=== PATIENT | female | born 1985 | race African-American/Black ===

== ENCOUNTER 2016-08-26 12:24 | Emergency (ER) | payer MEDICAID ==
[~2016-08-26] VITALS: Ht 170.2 cm; Wt 109.1 kg
[~2016-08-26 12:24] MED LIST: CLARITIN 1010 MG/TAB PO; CLEOCIN HC150 MG/CAP PO; CLEOCIN HCL300 MG PO; DAZIDOX10 MG PO; DOXYCYCLINE 10100 MG PO; FIORICET 325 MG1 TA1 PO; FIORINAL 325 MG1 CAP PO; FLEXERIL 1010 MG/TAB PO; HCTZ 25MG TAB25 MG PO; HORMONE REPLACEMENT; IPRATROPIUM BROM3 M1 IH; LEVAQUIN 750MG750 M1 PO; NEURONTIN300 MG/CAP PO; NORCO 325 MG-51 TAB PO; NORCO 325 MG-7.1 TAB PO; PERCOCET 325 MG1 TA2 PO; PHENERGAN 25 TA25 MG PO; PREDNISONE10 MG PO; PREDNISONE20 MG PO; PROAIR HFA0.09 MG/AC IH; PROMETHAZINE12.5 M5 PO; PROTEIN PO; ZOFRAN 4MG T4 MG/TAB PO; ZOFRAN ODT4 MG PO; ZOFRAN8 MG PO; [UNRECOGNIZED DRUG - OTHER]; [UNRECOGNIZED DRUG - OTHER]
[2016-08-26] MEDS ORDERED: CLEOCIN HC150 MG/CAP PO (13:39)
[2016-08-26] MEDS ORDERED: GICOCKTAIL PO (14:01)
[2016-08-26 14:14] VITALS: BP 140/85; PULSE 106; TEMP 98.3
== END 2016-08-26 14:15 | disposition home or self-care (01) ==
LOC: COL.ER 12:24
DX: K08.89 Other specified disorders of teeth and supporting structures (principal); K03.81 Cracked tooth

== ENCOUNTER 2016-09-11 15:43 | Emergency (ER) | payer MEDICAID ==
[~2016-09-11] VITALS: Ht 170.2 cm; Wt 113.6 kg
[~2016-09-11 15:43] MED LIST changes: +GICOCKTAIL PO
[2016-09-11 15:45] VITALS: BP 148/82; PULSE 109; TEMP 98.3
[2016-09-11] MEDS ORDERED: ZOFRAN ODT4 MG PO (16:13)
== END 2016-09-11 17:13 | disposition home or self-care (01) ==
LOC: COL.ER 15:43
DX: M32.9 Systemic lupus erythematosus, unspecified (principal); R52 Pain, unspecified
CPT/HCPCS: J1100; J1170; J2550

== ENCOUNTER 2016-09-30 04:53 | Emergency (ER) | payer MEDICAID ==
[~2016-09-30] VITALS: Ht 170.2 cm; Wt 114.5 kg
[2016-09-30 04:58] VITALS: BP 153/114; TEMP 98.2
[2016-09-30 06:17] VITALS: PULSE 97
== END 2016-09-30 06:17 | disposition home or self-care (01) ==
LOC: COL.ER 04:53
DX: R51 Headache (principal)
CPT/HCPCS: J1100; J2550

== ENCOUNTER 2016-10-28 06:37 | Emergency (ER) | payer MEDICAID ==
[~2016-10-28] VITALS: Ht 170.2 cm; Wt 117.7 kg
[2016-10-28 06:40] VITALS: BP 110/62; TEMP 98.8
[2016-10-28] MEDS ORDERED: ROXICODONE15 MG PO (06:45)
[2016-10-28] MEDS ORDERED: ZOFRAN ODT4 MG PO (08:03)
[2016-10-28 08:31] VITALS: PULSE 98
== END 2016-10-28 08:32 | disposition home or self-care (01) ==
LOC: COL.ER 06:37
DX: M25.562 Pain in left knee (principal); M25.572 Pain in left ankle and joints of left foot; M25.571 Pain in right ankle and joints of right foot; M25.552 Pain in left hip; F17.210 Nicotine dependence, cigarettes, uncomplicated; G89.29 Other chronic pain; M32.9 Systemic lupus erythematosus, unspecified
CPT/HCPCS: J1100; J2550

== ENCOUNTER 2016-11-29 19:02 | Emergency (ER) | payer MEDICAID ==
[~2016-11-29] VITALS: Ht 170.2 cm; Wt 109.1 kg
[~2016-11-29 19:02] MED LIST changes: +ROXICODONE15 MG PO
[2016-11-29 19:05] VITALS: BP 110/57; TEMP 97.6
[2016-11-29 20:23] LABS: BASO % 0.4 % (0.0-2.0); EOS # 0.5 (0.0-0.7); EOS % 4.5 % (0-4.0); GRAN # 5.2 (1.4-6.5); HEMATOCRIT 35.9 % (37.0-47.0); HEMOGLOBIN 11.3 g/dl (12.5-16.0); LYMPH # 3.5 (1.2-3.4); LYMPH % 34.4 % (20.0-51.0); MEAN CELL VOLUME 85 fl (80.0-100.0); MEAN CORPUSCULAR HEMOGLOBIN 27 pg (27.0-31.0); MEAN CORPUSCULAR HGB CONC 32 g/dl (33.0-37.0); MEAN PLATELET VOLUME 9.6 fl (7.4-10.4); MONO # 0.8 (0.1-0.6); MONO % 7.9 % (1.7-9.3); PLATELET COUNT 386 K/mm3 (130-400); RED BLOOD COUNT 4.22 M/mm3 (4.10-5.30); REDCELL DISTRIBUTION WIDTH-CV 14.4 % (11.5-14.5)
[2016-11-29 20:31] LABS: ADJUSTED CALCIUM 9.4 mg/dL (8.4-10.2); ALBUMIN 3.7 gm/dL (3.5-5.0); BILIRUBIN,TOTAL 0.5 mg/dL (0.0-1.0); CALCIUM 9.2 mg/dL (8.4-10.2); CREATININE, serum 0.72 mg/dL (0.52-1.25); POTASSIUM 4.2 mmol/L (3.4-5.0); TOTAL PROTEIN 6.8 gm/dL (6.4-8.2)
[2016-11-29 20:53] LABS: C-REACTIVE PROTEIN 2.6 mg/dL (0.0-0.9)
[2016-11-29 21:19] VITALS: PULSE 87
== END 2016-11-29 21:19 | disposition home or self-care (01) ==
LOC: COL.ER 19:02
PROVIDERS: Emergency Medicine
DX: M32.9 Systemic lupus erythematosus, unspecified (principal); M25.562 Pain in left knee; M25.561 Pain in right knee; M25.552 Pain in left hip; M25.551 Pain in right hip
CPT/HCPCS: J2405; J2930; J3010; J7030; J7060

== ENCOUNTER 2016-12-10 23:30 | Emergency (ER) | payer MEDICAID ==
[~2016-12-10] VITALS: Ht 170.2 cm; Wt 104.5 kg
[2016-12-10 23:32] VITALS: TEMP 97.4
[2016-12-10] MEDS ORDERED: ZYRTEC 10MG10 MG PO (23:38)
[2016-12-10] MEDS ORDERED: MOBIC15 MG PO (23:38)
[2016-12-10] MEDS ORDERED: SYNTHROID0.05 MG/TA PO (23:38)
[2016-12-10] MEDS ORDERED: AMITRIPTYLINE H50 M1 PO (23:38)
[2016-12-10] MEDS ORDERED: LOPRESSOR 225 MG/TAB PO (23:39)
[2016-12-10] MEDS ORDERED: ZOFRAN8 MG PO (23:56)
[2016-12-10] MEDS ORDERED: PERCOCET 325 MG1 TA2 PO (23:56)
[2016-12-11] MEDS ORDERED: PREDNISONE20 MG PO
[2016-12-11 00:28] VITALS: BP 116/67; PULSE 84
== END 2016-12-11 00:29 | disposition home or self-care (01) ==
LOC: COL.ER 23:30
DX: M54.9 Dorsalgia, unspecified (principal); M25.552 Pain in left hip; M25.551 Pain in right hip; M25.562 Pain in left knee; R11.10 Vomiting, unspecified; M32.9 Systemic lupus erythematosus, unspecified; G89.29 Other chronic pain; I10 Essential (primary) hypertension
CPT/HCPCS: J1170; J2930

== ENCOUNTER 2016-12-18 08:44 | Emergency (ER) | payer MEDICAID ==
[~2016-12-18] VITALS: Ht 170.2 cm; Wt 114.3 kg
[~2016-12-18 08:44] MED LIST changes: +AMITRIPTYLINE H50 M1 PO; +LOPRESSOR 225 MG/TAB PO; +MOBIC15 MG PO; +SYNTHROID0.05 MG/TA PO; +ZYRTEC 10MG10 MG PO
[2016-12-18 08:47] VITALS: BP 139/77; PULSE 93; TEMP 99.7
[2016-12-18] MEDS ORDERED: FENTANYL 12MCG TD (09:13)
== END 2016-12-18 09:44 | disposition home or self-care (01) ==
LOC: COL.ER 08:44
DX: M54.2 Cervicalgia (principal); M25.512 Pain in left shoulder; M25.552 Pain in left hip; M25.551 Pain in right hip; M25.562 Pain in left knee; M25.561 Pain in right knee; I10 Essential (primary) hypertension; G89.29 Other chronic pain; M32.9 Systemic lupus erythematosus, unspecified; F17.210 Nicotine dependence, cigarettes, uncomplicated
CPT/HCPCS: J1170

== ENCOUNTER 2016-12-29 11:04 | Emergency (ER) | payer MEDICAID ==
[~2016-12-29] VITALS: Ht 170.2 cm; Wt 118.6 kg
[~2016-12-29 11:04] MED LIST changes: +FENTANYL 12MCG TD
[2016-12-29 11:13] VITALS: BP 129/88; PULSE 107; TEMP 98.3
[2016-12-29] MEDS ORDERED: CLEOCIN HC150 MG/CAP PO (11:56)
== END 2016-12-29 12:28 | disposition home or self-care (01) ==
LOC: COL.ER 11:04
DX: K08.539 Fractured dental restorative material, unspecified (principal); K02.9 Dental caries, unspecified; I10 Essential (primary) hypertension; G43.909 Migraine, unspecified, not intractable, without status migrainosus; F17.210 Nicotine dependence, cigarettes, uncomplicated

== ENCOUNTER 2017-01-09 23:50 | Emergency (ER) | payer MEDICAID ==
[~2017-01-09] VITALS: Ht 170.2 cm; Wt 117.3 kg
[2017-01-09 23:53] VITALS: TEMP 98.3
[2017-01-10] MEDS ORDERED: PERCOCET 325 MG1 TA2 (00:05)
[2017-01-10] MEDS ORDERED: NORCO 325 MG-51 TAB PO (00:05)
[2017-01-10] MEDS ORDERED: NEURONTIN300 MG/CAP PO (00:08)
[2017-01-10] MEDS ORDERED: MEDROL 4MG DOSPA4 MG PO (00:35)
[2017-01-10 00:46] VITALS: BP 120/84; PULSE 89
== END 2017-01-10 00:48 | disposition home or self-care (01) ==
LOC: COL.ER 23:50
DX: M25.561 Pain in right knee (principal); M32.9 Systemic lupus erythematosus, unspecified; G89.29 Other chronic pain; R11.0 Nausea
CPT/HCPCS: J1170; J2405; J7512

== ENCOUNTER 2017-01-21 10:16 | Emergency (ER) | payer MEDICAID ==
[~2017-01-21] VITALS: Ht 172.7 cm; Wt 70.5 kg
[~2017-01-21 10:16] MED LIST changes: +MEDROL 4MG DOSPA4 MG PO; +PERCOCET 325 MG1 TA2
[2017-01-21 10:18] VITALS: TEMP 99.3
[2017-01-21] MEDS ORDERED: CLINDAMYCIN150 MG PO (11:01)
[2017-01-21 11:17] VITALS: BP 135/80; PULSE 110
== END 2017-01-21 11:17 | disposition home or self-care (01) ==
LOC: COL.ER 10:16
DX: K08.89 Other specified disorders of teeth and supporting structures (principal); F17.210 Nicotine dependence, cigarettes, uncomplicated; K03.81 Cracked tooth

== ENCOUNTER 2017-01-30 06:03 | Emergency (ER) | payer MEDICAID ==
[~2017-01-30] VITALS: Ht 170.2 cm; Wt 119.5 kg
[~2017-01-30 06:03] MED LIST changes: +CLINDAMYCIN150 MG PO
[2017-01-30 06:06] VITALS: TEMP 99
[2017-01-30 08:56] VITALS: BP 139/91; PULSE 114
== END 2017-01-30 08:57 | disposition home or self-care (01) ==
LOC: COL.ER 06:03
DX: S93.401A Sprain of unspecified ligament of right ankle, initial encounter (principal); G89.29 Other chronic pain; M25.552 Pain in left hip; M25.551 Pain in right hip; M25.562 Pain in left knee; M25.561 Pain in right knee; M32.9 Systemic lupus erythematosus, unspecified; Z79.891 Long term (current) use of opiate analgesic; W19.XXXA Unspecified fall, initial encounter; Z91.81 History of falling; Y92.009 Unspecified place in unspecified non-institutional (private) residence as the place of occurrence of the external cause; I10 Essential (primary) hypertension; F17.210 Nicotine dependence, cigarettes, uncomplicated
CPT/HCPCS: J1100

== ENCOUNTER 2017-03-05 11:06 | Emergency (ER) | payer MEDICAID ==
[~2017-03-05] VITALS: Ht 170.2 cm; Wt 125.5 kg
[2017-03-05 11:14] VITALS: BP 136/64; PULSE 100; TEMP 98.4
[2017-03-05 12:29] LABS: BASO % 0.5 % (0.0-2.0); EOS # 0.3 (0.0-0.7); EOS % 4.3 % (0-4.0); GRAN # 4.2 (1.4-6.5); GRAN % 54.4 % (42.2-75.2); LYMPH # 2.6 (1.2-3.4); LYMPH % 33.5 % (20.0-51.0); MEAN CELL VOLUME 85 fl (80.0-100.0); MEAN CORPUSCULAR HGB CONC 32 g/dl (33.0-37.0); MEAN PLATELET VOLUME 9.5 fl (7.4-10.4); MONO # 0.5 (0.1-0.6); MONO % 6.8 % (1.7-9.3); PLATELET COUNT 394 K/mm3 (130-400); RED BLOOD COUNT 4.13 M/mm3 (4.10-5.30); REDCELL DISTRIBUTION WIDTH-CV 14.5 % (11.5-14.5); WHITE BLOOD COUNT 7.8 K/mm3 (4.8-10.8)
[2017-03-05 12:33] LABS: HEMOGLOBIN 11.3 g/dl (12.5-16.0); MEAN CORPUSCULAR HEMOGLOBIN 27 pg (27.0-31.0)
[2017-03-05 12:40] LABS: ADJUSTED CALCIUM 9.5 mg/dL (8.4-10.2); ALBUMIN 3.8 gm/dL (3.5-5.0); BILIRUBIN,TOTAL 0.3 mg/dL (0.0-1.0); CALCIUM 9.3 mg/dL (8.4-10.2); CREATININE, serum 0.55 mg/dL (0.52-1.25); POTASSIUM 3.9 mmol/L (3.4-5.0); TOTAL PROTEIN 6.9 gm/dL (6.4-8.2)
== END 2017-03-05 13:21 | disposition home or self-care (01) ==
LOC: COL.ER 11:06
PROVIDERS: Nurse Practitioner
DX: M79.652 Pain in left thigh (principal); M79.651 Pain in right thigh; M79.662 Pain in left lower leg; M79.661 Pain in right lower leg; G43.909 Migraine, unspecified, not intractable, without status migrainosus

== ENCOUNTER 2017-03-15 21:12 | Emergency (ER) | payer MEDICAID ==
[~2017-03-15] VITALS: Ht 170.2 cm; Wt 120.4 kg
[2017-03-15 21:18] VITALS: BP 137/72; TEMP 98.5
[2017-03-15] MEDS ORDERED: PREDNISONE20 MG PO (23:29)
[2017-03-15] MEDS ORDERED: NORCO 325 MG-51 TAB PO (23:29)
[2017-03-15] MEDS ORDERED: DOXYCYCLINE 10100 MG PO (23:29)
[2017-03-16 00:08] VITALS: PULSE 117
== END 2017-03-16 00:08 | disposition home or self-care (01) ==
LOC: COL.ER 21:12
DX: R07.9 Chest pain, unspecified (principal); J40 Bronchitis, not specified as acute or chronic; I10 Essential (primary) hypertension; F17.200 Nicotine dependence, unspecified, uncomplicated; F99 Mental disorder, not otherwise specified
CPT/HCPCS: J7512

== ENCOUNTER 2017-03-31 21:15 | Emergency (ER) | payer MEDICAID ==
[~2017-03-31] VITALS: Ht 170.2 cm; Wt 122.7 kg
[2017-03-31 21:18] VITALS: BP 135/70; TEMP 97.9
[2017-03-31 22:38] VITALS: PULSE 112
== END 2017-03-31 22:38 | disposition home or self-care (01) ==
LOC: COL.ER 21:15
DX: M79.1 Myalgia (principal); Z87.39 Personal history of other diseases of the musculoskeletal system and connective tissue
CPT/HCPCS: J1170; J2550; J8540

== ENCOUNTER 2017-06-01 16:58 | Emergency (ER) | payer MEDICAID ==
[~2017-06-01] VITALS: Ht 170.2 cm; Wt 127.3 kg
[~2017-06-01 16:58] MED LIST changes: +PERCOCET 325 MG1 TAB PO
[2017-06-01 17:01] VITALS: BP 105/71; TEMP 97.9
[2017-06-01] MEDS ORDERED: MEDROL 4MG DOSPA4 MG PO (19:26)
[2017-06-01 19:42] VITALS: PULSE 91
== END 2017-06-01 19:44 | disposition home or self-care (01) ==
LOC: COL.ER 16:58
DX: M25.461 Effusion, right knee (principal); I10 Essential (primary) hypertension; G43.909 Migraine, unspecified, not intractable, without status migrainosus; G89.29 Other chronic pain; M54.9 Dorsalgia, unspecified; F17.210 Nicotine dependence, cigarettes, uncomplicated; Z87.39 Personal history of other diseases of the musculoskeletal system and connective tissue
CPT/HCPCS: J2405

== ENCOUNTER 2017-06-28 09:45 | Emergency (ER) | payer MEDICAID ==
[~2017-06-28] VITALS: Ht 170.2 cm; Wt 111.4 kg
[~2017-06-28 09:45] MED LIST changes: +MICROZIDE12.5 MG PO
[2017-06-28 09:54] VITALS: BP 127/74; TEMP 97.8
[2017-06-28 12:36] VITALS: PULSE 97
== END 2017-06-28 12:00 | disposition home or self-care (01) ==
LOC: COL.ER 09:45
DX: G89.29 Other chronic pain (principal); M25.562 Pain in left knee; M25.561 Pain in right knee; G43.909 Migraine, unspecified, not intractable, without status migrainosus; I10 Essential (primary) hypertension; M32.9 Systemic lupus erythematosus, unspecified; F17.210 Nicotine dependence, cigarettes, uncomplicated; Z98.890 Other specified postprocedural states; Z90.722 Acquired absence of ovaries, bilateral
CPT/HCPCS: J1170; J2550

== ENCOUNTER 2017-07-04 14:58 | Emergency (ER) | payer MEDICAID ==
[~2017-07-04] VITALS: Ht 170.2 cm; Wt 130.9 kg
[2017-07-04 15:05] VITALS: BP 140/65; PULSE 93; TEMP 98.1
[2017-07-04] MEDS ORDERED: NORCO 325 MG-51 TAB PO (15:51)
[2017-07-04] MEDS ORDERED: PERCOCET 325 MG1 TAB PO (15:51)
[2017-07-04] MEDS ORDERED: PREDNISONE10 MG PO (16:38)
== END 2017-07-04 16:48 | disposition home or self-care (01) ==
LOC: COL.ER 14:58
DX: G89.29 Other chronic pain (principal); M79.662 Pain in left lower leg; M79.661 Pain in right lower leg; M32.9 Systemic lupus erythematosus, unspecified; E66.9 Obesity, unspecified; Z98.890 Other specified postprocedural states; Z86.718 Personal history of other venous thrombosis and embolism; W10.9XXA Fall (on) (from) unspecified stairs and steps, initial encounter; Y93.01 Activity, walking, marching and hiking

== ENCOUNTER 2017-07-28 04:52 | Emergency (ER) | payer MEDICAID ==
[~2017-07-28] VITALS: Ht 172.7 cm; Wt 113.2 kg
[~2017-07-28 04:52] MED LIST changes: -LOPRESSOR 225 MG/TAB PO; +LOPRESSOR 550 MG/TAB PO; -MICROZIDE12.5 MG PO
[2017-07-28 04:57] VITALS: TEMP 98.2
[2017-07-28] MEDS ORDERED: MEDROL 4MG DOSPA4 MG PO (05:30)
[2017-07-28 06:13] VITALS: BP 122/86; PULSE 80
== END 2017-07-28 06:14 | disposition home or self-care (01) ==
LOC: COL.ER 04:52
DX: G43.909 Migraine, unspecified, not intractable, without status migrainosus (principal)
CPT/HCPCS: J1170; J1200; J2550; J7512

== ENCOUNTER 2017-09-07 22:48 | Emergency (ER) | payer MEDICAID ==
[~2017-09-07] VITALS: Ht 170.2 cm; Wt 117.3 kg
[2017-09-07 22:50] VITALS: TEMP 98.6
[2017-09-08 00:14] LABS: COLLECTION METHOD CLEAN CATCH
[2017-09-08 00:17] LABS: BASO % 0.3 % (0.0-2.0); EOS # 0.5 (0.0-0.7); EOS % 3.4 % (0-4.0); GRAN % 58.7 % (42.2-75.2); HEMATOCRIT 33.1 % (37.0-47.0); HEMOGLOBIN 10.3 g/dl (12.5-16.0); LYMPH # 3.9 (1.2-3.4); LYMPH % 28.6 % (20.0-51.0); MEAN CELL VOLUME 84 fl (80.0-100.0); MEAN CORPUSCULAR HEMOGLOBIN 26 pg (27.0-31.0); MEAN CORPUSCULAR HGB CONC 31 g/dl (33.0-37.0); MEAN PLATELET VOLUME 10.1 fl (7.4-10.4); MONO # 1.1 (0.1-0.6); MONO % 7.9 % (1.7-9.3); PLATELET COUNT 260 K/mm3 (130-400); RED BLOOD COUNT 3.92 M/mm3 (4.10-5.30); REDCELL DISTRIBUTION WIDTH-CV 15.4 % (11.5-14.5)
[2017-09-08 00:20] LABS: MUCOUS Present /lpf; PH 6 (5-8); SQUAMOUS EPITHELIAL 0-2 /hpf; URINE APPEARANCE Clear; URINE BACTERIA Rare /hpf; URINE BILIRUBIN Negative (NEGATIVE); URINE BLOOD Negative (NEGATIVE); URINE COLOR Yellow; URINE GLUCOSE Negative (NEGATIVE); URINE KETONE Negative (NEGATIVE); URINE LEUKOCYTE ESTERASE Negative (NEGATIVE); URINE NITRATE Negative (NEGATIVE); URINE PROTEIN(semi-quant) Negative (NEGATIVE); URINE RBC 0-2 /hpf; URINE UROBILINOGEN Negative (NEGATIVE)
[2017-09-08 00:28] LABS: ALBUMIN 3.6 gm/dL (3.5-5.0); BILIRUBIN,TOTAL 0.2 mg/dL (0.0-1.0); C-REACTIVE PROTEIN 1.5 mg/dL (0.0-0.9); CALCIUM 8.7 mg/dL (8.4-10.2); CREATININE, serum 0.57 mg/dL (0.52-1.25); TOTAL PROTEIN 6.6 gm/dL (6.4-8.2)
[2017-09-08] MEDS ORDERED: PERCOCET 325 MG1 TAB PO (00:51)
[2017-09-08] MEDS ORDERED: MEDROL 4MG DOSPA4 MG PO (00:54)
[2017-09-08 01:12] VITALS: BP 149/87; PULSE 98
== END 2017-09-08 01:12 | disposition home or self-care (01) ==
LOC: COL.ER 22:48
PROVIDERS: Emergency Medicine
DX: M32.9 Systemic lupus erythematosus, unspecified (principal); I10 Essential (primary) hypertension; F17.210 Nicotine dependence, cigarettes, uncomplicated; Z79.52 Long term (current) use of systemic steroids
CPT/HCPCS: J1170; J2405; J7030; J7512

== ENCOUNTER 2017-10-26 20:50 | Emergency (ER) | payer MEDICAID ==
[~2017-10-26] VITALS: Ht 170.2 cm; Wt 111.4 kg
[2017-10-26 20:54] VITALS: TEMP 98.1
[2017-10-26] MEDS ORDERED: FENTANYL 50MCG TD (21:34)
[2017-10-26 21:35] LABS: BASO % 0.2 % (0.0-2.0); EOS % 0.1 % (0-4.0); GRAN % 73.2 % (42.2-75.2); LYMPH # 2.7 (1.2-3.4); LYMPH % 21.5 % (20.0-51.0); MEAN CELL VOLUME 85 fl (80.0-100.0); MEAN CORPUSCULAR HGB CONC 32 g/dl (33.0-37.0); MEAN PLATELET VOLUME 9.4 fl (7.4-10.4); MONO # 0.5 (0.1-0.6); PLATELET COUNT 499 K/mm3 (130-400); RED BLOOD COUNT 4.21 M/mm3 (4.10-5.30); REDCELL DISTRIBUTION WIDTH-CV 14.9 % (11.5-14.5)
[2017-10-26 21:39] LABS: HEMATOCRIT 35.6 % (37.0-47.0); HEMOGLOBIN 11.5 g/dl (12.5-16.0); MEAN CORPUSCULAR HEMOGLOBIN 27 pg (27.0-31.0)
[2017-10-26 21:47] LABS: ALANINE AMINOTRANSFERASE 22 U/L (9-52); ALKALINE PHOSPHATASE 91 U/L (50-136); ANION GAP 13 mmol/L (7-16); AST,SGOT 15 U/L (15-37); BILIRUBIN,TOTAL < 0.1 mg/dL (0.0-1.0); BLOOD UREA NITROGEN 17 mg/dL (7-17); C-REACTIVE PROTEIN < 0.5 mg/dL (0.0-0.9); CALCIUM 8.8 mg/dL (8.4-10.2); CARBON DIOXIDE 24 mmol/L (22-30); CHLORIDE 102 mmol/L (98-107); CREATININE, serum 0.61 mg/dL (0.52-1.25); GLUCOSE 177 mg/dL (74-106); POTASSIUM 4.1 mmol/L (3.4-5.0); SODIUM 139 mmol/L (137-145); TOTAL PROTEIN 7.3 gm/dL (6.4-8.2)
[2017-10-26 21:55] LABS: ERYTHROCYTE SEDIMENTATION RATE 13 mm/hr (0-20)
[2017-10-26 21:56] LABS: TROPONIN-I < 0.012 ng/mL (0.000-0.034)
[2017-10-26] MEDS ORDERED: DOXYCYCLINE 10100 MG PO (22:34)
[2017-10-26 22:55] VITALS: BP 121/63; PULSE 87
== END 2017-10-26 22:45 | disposition home or self-care (01) ==
LOC: COL.ER 20:50
PROVIDERS: Emergency Medicine
DX: R07.89 Other chest pain (principal); Z87.39 Personal history of other diseases of the musculoskeletal system and connective tissue
CPT/HCPCS: J8540

== ENCOUNTER 2018-01-15 02:44 | Emergency (ER) | payer MEDICAID ==
[~2018-01-15] VITALS: Ht 170.2 cm; Wt 113.6 kg
[~2018-01-15 02:44] MED LIST changes: +FENTANYL 50MCG TD
[2018-01-15 02:49] VITALS: BP 112/93; TEMP 97
[2018-01-15 03:13] LABS: BASO % 0.4 % (0.0-2.0); EOS # 0.3 (0.0-0.7); GRAN # 4.1 (1.4-6.5); GRAN % 44.8 % (42.2-75.2); LYMPH # 4.1 (1.2-3.4); LYMPH % 45.1 % (20.0-51.0); MEAN CELL VOLUME 83 fl (80.0-100.0); MEAN CORPUSCULAR HEMOGLOBIN 27 pg (27.0-31.0); MEAN CORPUSCULAR HGB CONC 33 g/dl (33.0-37.0); MONO # 0.6 (0.1-0.6); MONO % 6.4 % (1.7-9.3); PLATELET COUNT 451 K/mm3 (130-400); RED BLOOD COUNT 4.41 M/mm3 (4.10-5.30); REDCELL DISTRIBUTION WIDTH-CV 13.7 % (11.5-14.5)
[2018-01-15 03:20] LABS: COLLECTION METHOD CLEAN CATCH
[2018-01-15 03:20] LABS: HEMATOCRIT 36.7 % (37.0-47.0)
[2018-01-15] MEDS ORDERED: MEDROL 4MG DOSPA4 MG PO (03:20)
[2018-01-15 03:25] LABS: ALANINE AMINOTRANSFERASE 25 U/L (9-52); ALBUMIN 3.7 gm/dL (3.5-5.0); ALKALINE PHOSPHATASE 108 U/L (50-136); ANION GAP 13 mmol/L (7-16); AST,SGOT 18 U/L (15-37); BILIRUBIN,TOTAL 0.4 mg/dL (0.0-1.0); BLOOD UREA NITROGEN 15 mg/dL (7-17); C-REACTIVE PROTEIN < 0.5 mg/dL (0.0-0.9); CALCIUM 9.2 mg/dL (8.4-10.2); CARBON DIOXIDE 23 mmol/L (22-30); CHLORIDE 106 mmol/L (98-107); CREATININE, serum 0.86 mg/dL (0.52-1.25); GLUCOSE 101 mg/dL (74-106); POTASSIUM 4.1 mmol/L (3.4-5.0); SODIUM 142 mmol/L (137-145); TOTAL PROTEIN 7.2 gm/dL (6.4-8.2)
[2018-01-15 03:30] LABS: MUCOUS Present /lpf; PH 5 (5-8); SQUAMOUS EPITHELIAL 0-2 /hpf; URINE APPEARANCE Clear; URINE BACTERIA Rare /hpf; URINE BILIRUBIN Positive (NEGATIVE); URINE BLOOD Negative (NEGATIVE); URINE COLOR Yellow; URINE GLUCOSE Negative (NEGATIVE); URINE KETONE Negative (NEGATIVE); URINE LEUKOCYTE ESTERASE Negative (NEGATIVE); URINE NITRATE Negative (NEGATIVE); URINE PROTEIN(semi-quant) 1+ (NEGATIVE); URINE RBC 0-2 /hpf; URINE UROBILINOGEN Negative (NEGATIVE)
[2018-01-15 03:33] LABS: ERYTHROCYTE SEDIMENTATION RATE 14 mm/hr (0-20)
[2018-01-15 04:02] VITALS: PULSE 89
== END 2018-01-15 04:02 | disposition home or self-care (01) ==
LOC: COL.ER 02:44
PROVIDERS: Family Medicine
DX: M32.9 Systemic lupus erythematosus, unspecified (principal); G89.29 Other chronic pain
CPT/HCPCS: J1100; J2405; J3010; J7030

== ENCOUNTER 2018-03-23 09:08 | Emergency (ER) | payer MEDICAID ==
[~2018-03-23] VITALS: Ht 170.2 cm; Wt 110.0 kg
[2018-03-23 09:15] VITALS: BP 128/99; TEMP 98
[2018-03-23 09:55] LABS: BASO % 0.3 % (0.0-2.0); EOS # 0.4 (0.0-0.7); EOS % 3.6 % (0-4.0); GRAN % 48.4 % (42.2-75.2); HEMOGLOBIN 10.8 g/dl (12.5-16.0); LYMPH # 4.1 (1.2-3.4); LYMPH % 40.4 % (20.0-51.0); MEAN CELL VOLUME 85 fl (80.0-100.0); MEAN CORPUSCULAR HEMOGLOBIN 27 pg (27.0-31.0); MEAN CORPUSCULAR HGB CONC 32 g/dl (33.0-37.0); MEAN PLATELET VOLUME 10.1 fl (7.4-10.4); MONO # 0.7 (0.1-0.6); MONO % 6.8 % (1.7-9.3); PLATELET COUNT 342 K/mm3 (130-400); RED BLOOD COUNT 3.97 M/mm3 (4.10-5.30); REDCELL DISTRIBUTION WIDTH-CV 14.7 % (11.5-14.5)
[2018-03-23 09:56] LABS: HEMATOCRIT 33.9 % (37.0-47.0)
[2018-03-23] MEDS ORDERED: ROXICODONE15 MG PO (10:02)
[2018-03-23] MEDS ORDERED: SUDAFED 12 HOU120 MG PO (10:03)
[2018-03-23 10:22] LABS: ERYTHROCYTE SEDIMENTATION RATE 20 mm/hr (0-20)
[2018-03-23 10:56] VITALS: PULSE 83
== END 2018-03-23 11:00 | disposition home or self-care (01) ==
LOC: COL.ER 09:08
PROVIDERS: Physician Assistant
DX: M25.561 Pain in right knee (principal); I10 Essential (primary) hypertension; F17.210 Nicotine dependence, cigarettes, uncomplicated; Z98.890 Other specified postprocedural states
CPT/HCPCS: L1846

== ENCOUNTER 2018-05-21 20:30 | Emergency (ER) | payer MEDICAID ==
[~2018-05-21] VITALS: Ht 170.2 cm; Wt 109.1 kg
[~2018-05-21 20:30] MED LIST changes: +SUDAFED 12 HOU120 MG PO
[2018-05-21 20:42] VITALS: BP 126/72; TEMP 97.5
[2018-05-21 22:42] VITALS: PULSE 86
== END 2018-05-21 22:42 | disposition home or self-care (01) ==
LOC: COL.ER 20:30
DX: G89.29 Other chronic pain (principal); M54.5 Low back pain; I10 Essential (primary) hypertension; Z87.39 Personal history of other diseases of the musculoskeletal system and connective tissue
CPT/HCPCS: J1100; J1170; J2550

== ENCOUNTER 2018-08-11 19:51 | Emergency (ER) | payer MEDICAID ==
[~2018-08-11] VITALS: Ht 170.2 cm; Wt 111.4 kg
[2018-08-11 19:54] VITALS: TEMP 98.6
[2018-08-11 20:57] VITALS: BP 121/72; PULSE 72
== END 2018-08-11 20:58 | disposition home or self-care (01) ==
LOC: COL.ER 19:51
DX: M32.9 Systemic lupus erythematosus, unspecified (principal); I10 Essential (primary) hypertension; G89.29 Other chronic pain
CPT/HCPCS: J1100; J1170

== ENCOUNTER 2018-09-16 18:27 | Emergency (ER) | payer MEDICAID ==
[~2018-09-16] VITALS: Ht 170.2 cm; Wt 106.8 kg
[2018-09-16 18:34] VITALS: TEMP 97.9
[2018-09-16] MEDS ORDERED: LOVENOX 6060 MG/0.6 SQ (19:03)
[2018-09-16 20:35] VITALS: BP 101/70; PULSE 71
== END 2018-09-16 20:37 | disposition home or self-care (01) ==
LOC: COL.ER 18:27
DX: L93.0 Discoid lupus erythematosus (principal); M25.561 Pain in right knee; M25.552 Pain in left hip; I10 Essential (primary) hypertension; G43.909 Migraine, unspecified, not intractable, without status migrainosus; E03.9 Hypothyroidism, unspecified; F17.210 Nicotine dependence, cigarettes, uncomplicated; Z79.899 Other long term (current) drug therapy
CPT/HCPCS: J1100

== ENCOUNTER 2018-09-28 00:56 | Emergency (ER) | payer MEDICAID ==
[~2018-09-28 00:56] MED LIST changes: +LOVENOX 6060 MG/0.6 SQ
[2018-09-28 01:00] VITALS: BP 160/112; TEMP 98.7
[2018-09-28] MEDS ORDERED: DESYREL 50MG50 MG PO (01:29)
[2018-09-28 02:56] VITALS: PULSE 90
== END 2018-09-28 02:56 | disposition home or self-care (01) ==
LOC: COL.ER 00:56
DX: M25.562 Pain in left knee (principal); M25.561 Pain in right knee; Z87.39 Personal history of other diseases of the musculoskeletal system and connective tissue
CPT/HCPCS: J1100; J2405

== ENCOUNTER 2018-10-18 22:20 | Emergency (ER) | payer MEDICAID ==
[~2018-10-18] VITALS: Ht 170.2 cm; Wt 111.4 kg
[~2018-10-18 22:20] MED LIST changes: +DESYREL 50MG50 MG PO
[2018-10-18 22:26] VITALS: BP 129/73; TEMP 97.7
[2018-10-18] MEDS ORDERED: ROXICODONE15 MG PO ×2 (23:00)
[2018-10-18] MEDS ORDERED: HYDRODIURIL50 MG PO (23:01)
[2018-10-19 00:01] VITALS: PULSE 116
== END 2018-10-19 00:01 | disposition home or self-care (01) ==
LOC: COL.ER 22:20
DX: G89.29 Other chronic pain (principal); M25.511 Pain in right shoulder; M25.561 Pain in right knee; M25.551 Pain in right hip; Z87.39 Personal history of other diseases of the musculoskeletal system and connective tissue; Z86.718 Personal history of other venous thrombosis and embolism; Z90.710 Acquired absence of both cervix and uterus
CPT/HCPCS: J1100; J1170; J2405

== ENCOUNTER 2019-02-09 07:10 | Emergency (ER) | payer MEDICAID ==
[~2019-02-09] VITALS: Ht 170.2 cm; Wt 100.0 kg
[~2019-02-09 07:10] MED LIST changes: +HYDRODIURIL50 MG PO; +PROTONIX 40MG T40 MG PO
[2019-02-09 08:00] VITALS: BP 128/72; PULSE 98; TEMP 97
== END 2019-02-09 08:00 | disposition home or self-care (01) ==
LOC: COL.ER 07:10
DX: Z79.52 Long term (current) use of systemic steroids (principal); M25.561 Pain in right knee
CPT/HCPCS: J1040

== ENCOUNTER 2019-05-31 16:03 | Emergency (ER) | payer MEDICAID ==
[~2019-05-31] VITALS: Ht 170.2 cm; Wt 106.8 kg
[2019-05-31 16:25] VITALS: BP 133/73; PULSE 92; TEMP 98.5
== END 2019-05-31 18:49 | disposition left against medical advice (07) ==
LOC: COL.ER 16:03
DX: M25.562 Pain in left knee (principal); M25.561 Pain in right knee; M25.551 Pain in right hip; M25.552 Pain in left hip; M32.9 Systemic lupus erythematosus, unspecified; Z79.891 Long term (current) use of opiate analgesic

== ENCOUNTER 2019-07-11 08:48 | Emergency (ER) | payer MEDICAID ==
[~2019-07-11] VITALS: Ht 170.2 cm; Wt 116.8 kg
[2019-07-11 09:01] VITALS: BP 134/90; TEMP 97.1
[2019-07-11] MEDS ORDERED: MEDROL 4MG DOSPA4 MG PO (09:52)
[2019-07-11] MEDS ORDERED: DOXYCYCLINE 10100 MG PO (09:52)
[2019-07-11 10:35] VITALS: PULSE 67
== END 2019-07-11 10:35 | disposition home or self-care (01) ==
LOC: COL.ER 08:48
DX: R51 Headache (principal); F17.210 Nicotine dependence, cigarettes, uncomplicated; Z90.722 Acquired absence of ovaries, bilateral; Z86.69 Personal history of other diseases of the nervous system and sense organs
CPT/HCPCS: J1100

== ENCOUNTER 2020-03-02 07:56 | Emergency (ER) | payer MEDICAID ==
[~2020-03-02] VITALS: Ht 170.2 cm; Wt 110.5 kg
[2020-03-02 08:12] VITALS: BP 126/70; TEMP 98.4
[2020-03-02 10:16] VITALS: PULSE 69
== END 2020-03-02 09:50 | disposition home or self-care (01) ==
LOC: COL.ER 07:56
DX: M25.552 Pain in left hip (principal); M54.5 Low back pain; F17.210 Nicotine dependence, cigarettes, uncomplicated; I10 Essential (primary) hypertension; E03.9 Hypothyroidism, unspecified; Z88.0 Allergy status to penicillin; Z87.39 Personal history of other diseases of the musculoskeletal system and connective tissue
CPT/HCPCS: J1040

== ENCOUNTER 2020-11-29 11:31 | Emergency (ER) | payer MEDICAID ==
[~2020-11-29] VITALS: Ht 170.2 cm; Wt 115.9 kg
[2020-11-29 11:44] VITALS: TEMP 98.3
[2020-11-29 12:53] VITALS: BP 127/68; PULSE 98
== END 2020-11-29 12:53 | disposition home or self-care (01) ==
LOC: COL.ER 11:31
DX: M32.9 Systemic lupus erythematosus, unspecified (principal); G89.29 Other chronic pain; F17.210 Nicotine dependence, cigarettes, uncomplicated; Z88.0 Allergy status to penicillin; Z88.1 Allergy status to other antibiotic agents; Z88.6 Allergy status to analgesic agent; Z88.8 Allergy status to other drugs, medicaments and biological substances; Z79.891 Long term (current) use of opiate analgesic
CPT/HCPCS: J1100

== ENCOUNTER → 2021-02-13 | Emergency (ER) | payer MEDICAID ==
[~2021-02-13] VITALS: Ht 167.6 cm; Wt 111.4 kg
[2021-02-13 13:26] VITALS: BP 119/75; PULSE 87; TEMP 98.2
== END ==
LOC: COL.ER 13:11
DX: G43.909 Migraine, unspecified, not intractable, without status migrainosus (principal)